=== PATIENT | female | born 1995 | race Caucasian/White ===

== ENCOUNTER 2018-05-07 02:04 | Emergency (ER) | payer SELFPAY ==
[~2018-05-07] VITALS: Ht 165.1 cm; Wt 61.2 kg
[2018-05-07] MEDS ORDERED: EYE IRRIGATION (OPTH) 120 ML BTL ONE (02:14)
[2018-05-07] MEDS ORDERED: FLUORESCEIN SOD(OPTH) 1 MG STRP ONE (02:14)
[2018-05-07] MEDS ORDERED: TETRACAINE HCL 0.5% OPTH SOLN 4 ML BTL ONE (02:14)
[2018-05-07] MEDS ORDERED: TOBRAMYCIN/DEXAMETHASONE(OPTH) 3.5 GM TUBE OP ONE (02:45)
[2018-05-07] MEDS ORDERED: HYDROCODONE/APAP 10MG-325MG TAB PO ONE (02:45)
[2018-05-07] MEDS ORDERED: TOBRAMYCIN 0.3% OPTH OINT 3.5 GM TUBE OP ONE (03:00)
== END 2018-05-07 03:15 | disposition home or self-care (01) ==
LOC: ER 02:04
DX: H57.12 Ocular pain, left eye (principal); S05.02XA Injury of conjunctiva and corneal abrasion without foreign body, left eye, initial encounter
CPT/HCPCS: 99283